=== PATIENT | female | born 1980 | race Caucasian/White ===

== ENCOUNTER 2017-07-13 05:33 | Emergency (ER) | payer OTHER ==
[2017-07-13 05:48] VITALS: BMI 39.4
[2017-07-13] MEDS ORDERED: predniSONE 20 MG TABLET (UD) PO ONE (06:28)
[2017-07-13] MEDS ORDERED: ALBUTEROL SO4 2.5/IPRATROPIUM 0.5 INH SOL 3 ML VIAL.NEB. NEB ONE ×2 (06:28→06:37)
[2017-07-13] MEDS ORDERED: predniSONE 20 MG TABLET (UD) ONE (06:37)
[2017-07-13] MEDS: ALBUTEROL SO4 2.5/IPRATROPIUM 0.5 INH SOL 3 ML VIAL.NEB. NEB SCH ×3 (06:41→07:05)
--- NOTE | 2017-07-13 06:50 | PDOC ---
History of Present Illness - General Chief Complaint: Asthma Stated Complaint: ASTHMA Time Seen by Provider: 07/13/17 06:04 - History of Present Illness Initial Comments: 07/13/17 06:40 37 yo F with h/o HTN, and asthma presents with SOB. States that over past 24 hours has had difficulty with breathing, [place], and left sided pain. Woke up from sleep at 1500 with SOB. States that she received one albuterol treatment via EMS with little resolution of symptoms. Reports worsening of symptoms with supine positioning.Denies aggravation of symptoms with deep inhalation. Chronic cough at baseline. Denies chest pain, fevers/chills, N/V, urinary or abdominal complaints. No hemoptysis, oral contraception, recent travel, h/o DVT/ PE, recent trauma or surgery within 4 weeks, malignancy. Ran out of Albuterol, Tiotropium 48 hours ago. Tobacco use 1/ PPD for 10 years. Past History - Past Medical History Allergies/Adverse Reactions: Allergies Allergy/AdvReac Type Severity Reaction Status Date / Time No Known Allergies Allergy Verified 07/13/17 05:44 Home Medications: Ambulatory Orders Albuterol Sulfate Inhaler - [Ventolin Hfa Inhaler -] 1 - 2 inh PO Q4H PRN Albuterol Sulfate Inhaler - [Ventolin Hfa Inhaler -] 1 - 2 inh PO Q4H PRN #1 inhaler 07/13/17 Amlodipine Besylate 10 mg PO DAILY #30 tablet 07/13/17 Amlodipine Besylate [Norvasc -] 5 mg PO DAILY 07/13/17 Lisinopril 5 mg PO DAILY #30 tablet 07/13/17 Prednisone [Deltasone -] 40 mg PO DAILY #4 tablet 07/13/17 Tiotropium Hay [Spiriva] 1 inh IH DAILY 07/13/17 Tiotropium Hay [Spiriva] 1 inh IH DAILY #1 inh 07/13/17 Asthma: Yes HTN: Yes Kidney Stones: Yes - Psycho/Social/Smoking Cessation Hx Anxiety: No Suicidal Ideation: No Smoking History: Current every day smoker Have you smoked in the past 12 months: Yes Number of Cigarettes Smoked Daily: 8 Information on smoking cessation initiated: No Hx Alcohol Use: No Drug/Substance Use Hx: No Substance Use Type: None Review of Systems - Review of Systems Comments:: 07/13/17 06:50 GENERAL/CONSTITUTIONAL: No fever or chills. No weakness. HEAD, EYES, EARS, NOSE AND THROAT: No change in vision. No ear pain or discharge. No sore throat.- CARDIOVASCULAR: No chest pain or shortness of breath RESPIRATORY: + cough,+ SOB, +wheezing. No hemoptysis. GASTROINTESTINAL: No nausea, vomiting, diarrhea or constipation. GENITOURINARY: No dysuria, frequency, or change in urination. MUSCULOSKELETAL: No joint or muscle swelling or pain. No neck or back pain. SKIN: No rash NEUROLOGIC: No headache, vertigo, loss of consciousness, or change in strength/ sensation. ENDOCRINE: No increased thirst. No abnormal weight change HEMATOLOGIC/LYMPHATIC: No anemia, easy bleeding, or history of blood clots. ALLERGIC/IMMUNOLOGIC: No hives or skin allergy. *Physical Exam - Vital Signs Last Vital Signs Temp Pulse Resp BP Pulse Ox 97.6 F 64 20 159/109 100 07/13/17 05:42 07/13/17 05:42 07/13/17 05:42 07/13/17 05:42 07/13/17 05:42 - Physical Exam Comments: 07/13/17 06:50 GENERAL: Awake, alert, and fully oriented, in no acute distress HEAD: No signs of trauma, normocephalic, atraumatic EYES: PERRLA, EOMI, sclera anicteric, conjunctiva clear ENT: Auricles normal inspection, hearing grossly normal, nares patent, oropharynx clear without exudates. Moist mucosa NECK: Normal ROM, supple, no lymphadenopathy, JVD, or masses LUNGS: + mild inspiratory. wheezing. No distress, speaks full sentences, clear to auscultation bilaterally HEART: Regular rate and rhythm, normal S1 and S2, no murmurs, rubs or gallops, peripheral pulses normal and equal bilaterally. EXTREMITIES: Normal inspection, Normal range of motion, no edema. No clubbing or cyanosis. SKIN: Warm, Dry, normal turgor, no rashes or lesions noted. Medical Decision Making - Medical Decision Making 07/13/17 06:55 37 yo F with h/o HTN, and asthma presents with SOB. Increased dry non productive cough, wheezing and SOB over past 24 hours Denies chest pain, fevers /chills, N/V, urinary or abdominal complaints. No hemoptysis, oral contraception , recent travel, h/o DVT/PE, recent trauma or surgery within 4 weeks, malignancy. Ran out of Albuterol, Tiotropium 48 hours ago. Physical exam reveals BP 159/109, AF, non tachycardic, 98% O2 RA. Scattered inspiratory wheezing throughout. Tobacco 1/4 PPD for 6 years DDx: Asthma exacerbation, LRI, URI, COPD ED Course: Oral Prednisone 40 mg x 1 Albuterol/Ipratropium Q15 x 4 Peak Expiratory Flow Sign out to DR. Mauro *DC/Admit/Observation/Transfer Diagnosis at time of Disposition: Asthma exacerbation - Discharge Dispostion Disposition: HOME Condition at time of disposition: Good - Prescriptions Prescriptions: Amlodipine Besylate 10 mg PO DAILY #30 tablet Prednisone [Deltasone -] 40 mg PO DAILY #4 tablet Lisinopril 5 mg PO DAILY #30 tablet Tiotropium Hay [Spiriva] 1 inh IH DAILY #1 inh Albuterol Sulfate Inhaler - [Ventolin Hfa Inhaler -] 1 - 2 inh PO Q4H PRN #1 inhaler PRN Reason: Asthma - Patient Instructions Printed Discharge Instructions: Asthma -- Adult
--- NOTE | 2017-07-13 06:57 | PDOC ---
Attending Attestation - Resident Resident Name: Barak Rust - ED Attending Attestation I have performed the following: I have examined & evaluated the patient, The case was reviewed & discussed with the resident, I agree w/resident's findings & plan, Exceptions are as noted - HPI HPI: 07/13/17 19:44 Pt c/o sob h/o asthma. Ranout of her medication. - Physicial Exam PE: 07/13/17 19:47 *Physical Exam General Appearance: Yes: Appropriately Dressed. No: Apparent Distress, Intoxicated HEENT: positive: EOMI, WAN, Normal ENT Inspection, Normal Voice, TMs Normal, Pharynx Normal. negative: Pale Conjunctivae, Photophobia, Scleral Icterus (R), Scleral Icterus (L) Neck: positive: Trachea midline, Normal Thyroid, Supple. negative: Tender, Rigid, Carotid bruit, Stridor, Lymphadenopathy (R), Lymphadenopathy (L), Thyromegaly Respiratory/Chest: positive: wheezing bilaterally. Cardiovascular: positive: Regular Rhythm, Regular Rate, S1, S2. negative: Edema , JVD, Murmur, Bradycardia, Tachycardia Vascular Pulses: Dorsalis-Pedis (R): 2+, Doralis-Pedis (L): 2+ Gastrointestinal/Abdominal: positive: Normal Bowel Sounds, Flat, Soft. negative : Tender, Organomegaly, Pulsatile Mass, Increased Bowel Sounds, Decreased BS, Distended, Guarding, Rebound, Hernia, Hepatomegaly, Spleenomegaly Lymphatic: negative: Adenopathy, Tenderness Musculoskeletal: positive: Normal Inspection. negative: CVA Tenderness, Decreased Range of Motion Extremity: positive: Normal Capillary Refill, Normal Inspection, Normal Range of Motion, Pelvis Stable. negative: Tender, Pedal Edema, Swelling, Erythema Integumentary: positive: Normal Color, Dry, Warm. negative: Cyanotic, Erythema , Jaundice, Rash Neurologic: positive: sourcing coordinator II-XII NML intact, Fully Oriented, Alert, Normal Mood/ Affect, Motor Strength 5/5. negative: EOM Palsy, Facial Droop, Sensory Deficit - Medical Decision Making 07/13/17 19:49 pt treated and released.
--- NOTE | 2017-07-13 07:26 | PDOC ---
*Physical Exam - Vital Signs Last Vital Signs Temp Pulse Resp BP Pulse Ox 97.6 F 64 20 159/109 100 07/13/17 05:42 07/13/17 05:42 07/13/17 05:42 07/13/17 05:42 07/13/17 05:42 - Physical Exam Comments: 07/13/17 07:31 GENERAL: Awake, alert, and fully oriented, in no acute distress HEAD: No signs of trauma, normocephalic, atraumatic ENT: Auricles normal inspection, hearing grossly normal, nares patent, oropharynx clear without exudates. Moist mucosa LUNGS: No distress, speaks full sentences, wheezing bilaterally SKIN: Warm, Dry, normal turgor, no rashes or lesions noted. ED Treatment Course - Medications Given in the ED: ED Medications Discontinued Medications Generic Name Dose Route Start Last Admin Trade Name Freq PRN Reason Stop Dose Admin Albuterol/Ipratropium 1 amp 07/13/17 06:28 07/13/17 06:41 Duoneb - NEB 07/13/17 06:29 Not Given ONCE ONE Prednisone 40 mg 07/13/17 06:28 07/13/17 06:41 Deltasone - PO 07/13/17 06:29 40 mg ONCE ONE Administration Medical Decision Making - Medical Decision Making 07/13/17 07:33 37F with history of asthma here today complaining of shortness of breath. Ran out of home medication at home and continues to smoke. Vital signs stable, diffuse wheezes bilaterally. Will reassess at 8:30. 07/13/17 08:52 Patient is clear to auscultation. Subjectively feeling better. Vital signs stable and normal, able to ambulate comfortable. Given return precautions, emphasized on setting up PCP follow up. Given 1 month supply of home medications because she has run out. *DC/Admit/Observation/Transfer Diagnosis at time of Disposition: Asthma exacerbation - Discharge Dispostion Disposition: HOME Condition at time of disposition: Good Admit: No - Prescriptions Prescriptions: Amlodipine Besylate 10 mg PO DAILY #30 tablet Prednisone [Deltasone -] 40 mg PO DAILY #4 tablet Lisinopril 5 mg PO DAILY #30 tablet Tiotropium [place] [Spiriva] 1 inh IH DAILY #1 inh Albuterol Sulfate Inhaler - [Ventolin Hfa Inhaler -] 1 - 2 inh PO Q4H PRN #1 inhaler PRN Reason: Asthma - Patient Instructions Printed Discharge Instructions: Asthma -- Adult
[2017-07-13 09:26] VITALS: BP 132/90; PULSE 80; TEMP 97.8
== END 2017-07-13 09:26 | disposition home or self-care (01) ==
LOC: JER 05:33
PROC: 3E0F7GC Introduction of Other Therapeutic Substance into Respiratory Tract, Via Natural or Artificial Opening (ICD-10-PCS; principal; 2017-07-13)
DX: J45.901 Unspecified asthma with (acute) exacerbation (principal); I10 Essential (primary) hypertension; F17.210 Nicotine dependence, cigarettes, uncomplicated; Z87.442 Personal history of urinary calculi
CPT/HCPCS: 99283-25

== ENCOUNTER 2018-09-06 10:52 | Emergency (ER) | payer OTHER ==
[2018-09-06 11:31] VITALS: BP 155/99; PULSE 64; TEMP 98.7; BMI 43.4
--- NOTE | 2018-09-06 11:46 | PDOC ---
History of Present Illness - General Chief Complaint: Cold Symptoms Stated Complaint: PCP SENT Time Seen by Provider: 09/06/18 11:35 History Source: Patient Exam Limitations: No Limitations - History of Present Illness Initial Comments: 09/06/18 11:41 HISTORY OF PRESENT ILLNESS: This is a 38-year-old woman with past medical history of asthma and hypertension who presents emergency department for evaluation of cough, runny nose and sore throat for the past one month. Patient was seen by her primary doctor and was told to come to the emergency department for evaluation. This all had started when patient was in her bathroom a month ago and the ceiling fell in on her head. Patient is concerned for possible mold infection and fungal illness of her lungs. She denies any shortness of breath, fevers, chills, chest pain. Patient does have pain in upper back which worsens with coughing. No recent travel or sick contacts. PAST MEDICAL HISTORY: HTN, asthma SURGICAL HISTORY: Denies ALLERGIES: No known drug allergies REVIEW OF SYSTEMS General/Constitutional: Denies fever or chills. Denies weakness, weight change. HEENT: Denies change in vision. Bilateral ear pain. No discharge. +sore throat. Cardiovascular: Denies chest pain or shortness of breath. Respiratory: Dry productive cough. Denies wheezing, or hemoptysis. Gastrointestinal: Denies nausea, vomiting, diarrhea or constipation. Denies rectal bleeding. Genitourinary: Denies dysuria, frequency, or change in urination. Musculoskeletal: Denies joint or muscle swelling or pain. Denies neck or back pain. Skin and breasts: Denies rash or easy bruising. Neurologic: Denies headache, vertigo, loss of consciousness, or loss of sensation. Psychiatric: Denies depression or anxiety. Endocrine: Denies increased thirst. Denies abnormal weight change. Hematologic/Lymphatic: Denies anemia, easy bleeding, or history of blood clots. Allergic/Immunologic: Denies hives or skin allergy. Denies latex allergy. PHYSICAL EXAM General Appearance: Well-appearing, appropriately dressed. No apparent distress , no intoxication. HEENT: EOMI, PERRLA, normal ENT inspection, normal voice, TMs bulging, pharynx normal. No conjunctival pallor. No photophobia, scleral icterus. Neck: Supple. Trachea midline. No tenderness, rigidity, carotid bruit, stridor , lymphadenopathy, or thyromegaly. Respiratory/Chest: No shortness of breath, chest tenderness, respiratory distress, accessory muscle use. No crackles, rales, rhonchi, stridor, dullness. End expiratory wheezes present. Cardiovascular: RRR. S1, S2. No JVD, murmur, bradycardia, tachycardia. Vascular Pulses: Dorsalis-Pedis (R): 2+, Dorsalis-Pedis (L): 2+ Gastrointestinal/Abdominal: Normal bowel sounds. Abdomen soft, non-distended. No tenderness or rebound tenderness. No organomegaly, pulsatile mass, guarding, hernia, hepatomegaly, splenomegaly. Lymphatic: No adenopathy, tenderness. Musculoskeletal/Extremities: Normal inspection. FROM of all extremities, normal capillary refill. Pelvis Stable. No CVA tenderness. No tenderness to extremities, pedal edema, swelling, erythema or deformity. Integumentary: Appropriate color, dry, warm. No cyanosis, erythema, jaundice or rash Neurologic: resolution analyst II-XII intact. Fully oriented, alert. Appropriate mood/affect. Motor strength 5/5. No appreciable EOM palsy, facial droop or sensory deficit. Past History - Past Medical History Allergies/Adverse Reactions: Allergies Allergy/AdvReac Type Severity Reaction Status Date / Time No Known Allergies Allergy Verified 01/05/18 18:17 Home Medications: Ambulatory Orders Albuterol Sulfate Inhaler - [Ventolin Hfa Inhaler -] 1 - 2 inh PO Q4H PRN #1 inhaler 07/13/17 Amlodipine Besylate 10 mg PO DAILY #30 tablet 07/13/17 Lisinopril 5 mg PO DAILY #30 tablet 07/13/17 Budesonide/Formeterol Fumarate [SYMBICORT 80/4.5mcg -] 1 inh PO DAILY 01/05/18 Methocarbamol [Robaxin-750] 750 mg PO TID #20 tablet 01/05/18 Azithromycin [Zithromax 250mg Tablets -] 250 mg PO UTDICT #6 tab 09/06/18 Asthma: Yes COPD: No HTN: Yes Kidney Stones: Yes - Suicide/Smoking/Psychosocial Hx Smoking History: Current every day smoker Have you smoked in the past 12 months: Yes Number of Cigarettes Smoked Daily: 10 Information on smoking cessation initiated: No Hx Alcohol Use: No Drug/Substance Use Hx: No Substance Use Type: None *Physical Exam - Vital Signs Last Vital Signs Temp Pulse Resp BP Pulse Ox 98.7 F 64 18 155/99 99 09/06/18 11:25 09/06/18 11:25 09/06/18 11:25 09/06/18 11:25 09/06/18 11:25 ED Treatment Course - RADIOLOGY Radiology Studies Ordered: Category Date Time Status CHEST PA & LAT [RAD] Stat Radiology 09/06/18 11:40 Ordered Medical Decision Making - Medical Decision Making 09/06/18 11:45 A/P: 38-year-old woman with 1 month of upper respiratory/pharyngitis symptoms Given length of symptoms and history of asthma get a chest x-ray DuoNeb's Reassess 09/06/18 12:37 Chest x-rays read by Dr. Bautista: No acute chest pathology. Repeat lung exam reveals clear lungs. As patient has a history of asthma and has had symptoms for greater than 1 month I will prescribe a course of azithromycin to treat any potential bacterial etiology. His explanted patient her symptoms may do not improve after taking antibiotics for which she verbalizes understanding. *DC/Admit/Observation/Transfer Diagnosis at time of Disposition: Bronchitis - Discharge Dispostion Disposition: HOME Condition at time of disposition: Stable Decision to Admit order: No - Prescriptions Prescriptions: Azithromycin [Zithromax 250mg Tablets -] 250 mg PO UTDICT #6 tab - Referrals Referrals: Jessica Jimenes [Primary Care Provider] - - Patient Instructions Printed Discharge Instructions: DI for Acute Bronchitis Additional Instructions: Take azithromycin 500 mg today followed by 250 mg every day until all medications are completed. As discussed, azithromycin may not help as bronchitis is usually a viral infection. Take Tylenol or Aleve as directed by manufacturers instructions for pain. Return to emergency department for fevers, chills, worsening cough, shortness of breath or any other concerns. Thank you very much for choosing us to provide your emergent health care needs. - Post Discharge Activity Forms/Work/School Notes: Back to Work
[2018-09-06] MEDS ORDERED: ALBUTEROL SO4 2.5/IPRATROPIUM 0.5 INH SOL 3 ML VIAL.NEB. NEB ONE (11:50)
[2018-09-06] MEDS: ALBUTEROL SO4 2.5/IPRATROPIUM 0.5 INH SOL 3 ML VIAL.NEB. NEB SCH ×2 (12:05→12:31)
== END 2018-09-06 12:43 | disposition home or self-care (01) ==
LOC: JERFT 10:52
PROC: 3E0F7GC Introduction of Other Therapeutic Substance into Respiratory Tract, Via Natural or Artificial Opening (ICD-10-PCS; principal; 2018-09-06)
DX: J40 Bronchitis, not specified as acute or chronic (principal); J45.909 Unspecified asthma, uncomplicated; I10 Essential (primary) hypertension
CPT/HCPCS: 71046-TC-FY; 99281-25

== ENCOUNTER 2021-09-21 12:54 | Emergency (ER) | payer OTHER ==
[2021-09-21 13:41] VITALS: BP 163/90; PULSE 90; TEMP 98.4; BMI 38.3
== END 2021-09-21 18:10 | disposition home or self-care (01) ==
LOC: JCOVINFU 12:54
DX: J06.9 Acute upper respiratory infection, unspecified (principal)
CPT/HCPCS: 87651; 87804; 99283-25; C9803; U0003; U0005